=== PATIENT | male | born 1995 | race Caucasian/White ===

== ENCOUNTER 2016-05-13 20:35 | Emergency (ER) ==
--- NOTE | 2016-05-13 21:38 | PROVIDER DOCUMENTATION ---
HPI-Musculoskeletal Pain/Inj <Kalyan Herrera - Last Filed: 05/13/16 22:49> - GENERAL Source: patient - HX OF PRESENT ILLNESS-MUSKULOSKELTAL Quality of Pain: reports: aching Severity in ED: mild Onset/Duration: last night Timing: still present Modifying Factors: improves with: nothing Any recent injury?: Yes Locality of Occurance: Home Similar Symptoms Previously?: No Recently seen or treated by another doctor?: No - FALL INJURY Location of Pain/Injury: reports: back (left lower) Pain Radiation: reports: legs (upper) (right) Reason for Fall: reports: lost balance Symptoms prior to fall:: reports: none Loss of Consciousness: no loss of consciousness Injury Associated Symptoms: reports: back/neck pain <Livia Stack - Last Filed: 05/13/16 22:56> - GENERAL Chief Complaint: Fall Stated Complaint: @0 FALL 05/12 Time Seen by Provider: 05/13/16 21:34 - HX OF PRESENT ILLNESS-MUSKULOSKELTAL Nature of Presenting Problem: 20 year old M presents to the ED with a cc of lower back pain secondary to a fall. Pt states that he was unloading a dryer last night and fell landing on his back. (Livia Stack) Review of Systems - Adult - REVIEW OF SYSTEMS - ADULT Constitutional: denies: chills, fever Eyes: reports: no symptoms reported Ears, Nose, Mouth & Throat: reports: no symptoms reported Cardiovascular: reports: no symptoms reported Respiratory: reports: no symptoms reported Gastrointestinal: reports: no symptoms reported Genitourinary: denies: dysuria, hematuria Musculoskeletal: reports: back pain. denies: neck pain Integumentary: denies: skin sores/ulcer, skin thickening Neurological: reports: no symptoms reported Psychiatric: reports: no symptoms reported Endocrine: reports: no symptoms reported Hematologic/Lymphatic: reports: no symptoms reported Allergic/Immunologic: reports: no symptoms reported All Other Systems: Reviewed and Negative <Livia Stack - Last Filed: 05/13/16 22:56> Past History - Adult - PAST MEDICAL HISTORY-ADULT Review of Records: reports: Nursing Assessment Review, Medications Reviewed Major Childhood Illnesses: reports: denies history - PRIOR SURGERIES/PROCEDURES Surgical/Procedure History: reports: tonsillectomy - IMMUNIZATION STATUS Childhood Immunizations: See Nurse Assessment Flu Vaccine: See Nurse Assessment <Livia Stack - Last Filed: 05/13/16 22:56> Physical Exam-Injury Related - Physical Exam-Injury Related Initial Vital Signs Reviewed: Yes General Appearance: appears well, alert, no apparent distress Respiratory: chest non-tender, lungs clear, normal breath sounds Cardiovascular: normal peripheral pulses, regular rate, rhythm, no edema Back Exam: muscle spasm (left lumbar paraspinous), vertebral tenderness (L4-L5) Extremity: normal inspection Integumentary: normal color, warm/dry Psych/Mental Status: normal mood/affect, normal thought content, normal thought process, oriented x 3 <Livia Stack - Last Filed: 05/13/16 22:56> Progress <Kalyan Herrera - Last Filed: 05/13/16 22:49> - CT/MRI 1 CT Study: Pelvis Impression: Normal CT Results: No fx: Dr. Ruiz-radiologist 2 CT Study: Lumbar Spine Impression: Normal CT Results: No fx: Dr. Ruiz-radiologist <Livia Stack - Last Filed: 05/13/16 22:56> - PLAN OF CARE/RESULTS Progress/Plan/Lab Results: plan of care: imaging, medications Orders Category Date Time Status LUMBAR SPINE W/O CONTRAST [CT] Stat Exams 05/13/16 21:47 Taken PELVIS W/O CONTRAST [CT] Stat Exams 05/13/16 21:47 Taken Ketorolac [Toradol] Med 05/13/16 21:47 Discontinued 60 mg IM NOW ONE Oxycodone/APAP 10 mg/325 mg [Percocet-10] Med 05/13/16 21:47 Discontinued 1 each PO NOW ONE Vital Signs - 24 hr 05/13/16 20:39 Temperature 97.8 F Pulse Rate 79 Respiratory 18 Rate Blood Pressure 141/67 O2 Sat by Pulse 100 Oximetry Pt given results and will be d/c home w/ rx to follow up with PCP. Pt verbally understood instructions. PT remained clinically stable throughout the course of the ED stay and will return if symptoms worsen. (Livia Stack) Departure - Departure Time of Disposition Order: 22:49 Certified Medical Emergency: Emergent <Kalyan Herrera - Last Filed: 05/13/16 22:49> <Livia Stack - Last Filed: 05/13/16 22:56> - Departure DIAGNOSIS: Lumbar back pain, Contusion, Fall Disposition: HOME 01 Condition: Stable Prescriptions: Methocarbamol [Robaxin-750] 750 mg PO TID #30 tablet Ibuprofen/Hydrocodone [Vicoprofen 200/7.5 mg] 1 each PO Q4H PRN PRN #20 tablet PRN Reason: Pain Referrals: None,PCP [Primary Care Provider] - Gianluca French MD [STAFF PHYSICIAN] - Attestation - Scribe Verification/Attestation Scribe:: Livia Stack Acting as Scribe for:: Kalyan Herrera Scribe documention review:: This chart was documented by a scribe and accurately reflects the service the provider performed and the decisions made by the provider. <Livia Stack - Last Filed: 05/13/16 22:56> Physician Attestation - Physician Attestation I, the provider, attest to the following statement:: Kalyan Herrera Physician documentation Attestation:: This documentation recorded by the scribe accurately reflects the service I personally performed and the decisions made by me. <Livia Stack - Last Filed: 05/13/16 22:56>
[2016-05-13] MEDS ORDERED: TORADOL IM ONE (21:47)
[2016-05-13] MEDS ORDERED: PERCOCET-10 PO ONE (21:47)
[2016-05-13 23:12] VITALS: BP 152/54
--- NOTE | 2016-05-13 23:16 | Diag Imaging Result Document ---
PROCEDURE NAME: LUMBAR SPINE W/O CONTRAST - 05/13/2016 CT LUMBAR SPINE WITHOUT CONTRAST: FINDINGS: There is good alignment to the lumbar spine. No compressed vertebra. There are bilateral pars defects to the L5 vertebra. No subluxation. No acute fracture. IMPRESSION: No acute bony injury. A preliminary report was given at 10:24 p.m..
--- NOTE | 2016-05-13 23:18 | Diag Imaging Result Document ---
PROCEDURE NAME: PELVIS W/O CONTRAST - 05/13/2016 CT [facility]Y PELVIS WITHOUT CONTRAST: FINDINGS: Neither hip is dislocated. No fracture to either hip. The pubic symphysis is not widened. No separation at the sacroiliac joints. No fracture to the pelvis. IMPRESSION: No acute bony injury. A preliminary report was given at 10:24 p.m..
== END 2016-05-13 23:47 | disposition home or self-care (01) ==
LOC: ED 20:35
DX: S30.0XXA Contusion of lower back and pelvis, initial encounter (principal); M54.5 Low back pain; M62.830 Muscle spasm of back; W19.XXXA Unspecified fall, initial encounter
CPT/HCPCS: 72131; 72192; J1885